=== PATIENT | male | born 1980 | race African-American/Black ===

== ENCOUNTER 2018-06-24 19:09 | Emergency (ER) | payer BC ==
[2018-06-24 19:45] VITALS: BP 134/81
--- NOTE | 2018-06-24 20:04 | UC ---
Skin Complaint HPI - HPI Summary HPI Summary: pt presents for evaluation of a possible tick bite to his back. he noticed it a month ago and pulled it out then. he states he is always in the pool. he states that there was a bump and it has subsequently gone down. he denies any fever, chills, arthralgas, or chest pain. - History of Current Complaint Chief Complaint: UCSkin Stated Complaint: BACK SKIN COMPLAINT TICK BITE Hx Obtained From: Patient, Family/[employer] Onset/Duration: Gradual Onset, Lasting Weeks - 4 Onset Severity: Mild Current Severity: Mild Pain Intensity: 0 - Allergy/Home Medications Allergies/Adverse Reactions: Allergies Allergy/AdvReac Type Severity Reaction Status Date / Time aspirin Allergy Unknown NOSE BLEEDS Verified 06/24/18 19:36 Review of Systems All Other Systems Reviewed And Are Negative: Yes Constitutional: Positive: Negative Skin: Positive: Rash Eyes: Positive: Negative ENT: Positive: Negative Respiratory: Positive: Negative Cardiovascular: Positive: Negative Gastrointestinal: Positive: Negative Genitourinary: Negative: Hematuria, Frequency Motor: Positive: Negative Neurovascular: Positive: Negative Musculoskeletal: Positive: Negative Neurological: Positive: Negative Psychological: Positive: Negative Is Patient Immunocompromised?: No PMH/Surg Hx/FS Hx/Imm Hx Previously Healthy: Yes - Surgical History Surgical History: None - Social History Alcohol Use: Daily Alcohol Amount: 1- 2 beer per day Substance Use Type: Marijuana Smoking Status (MU): Former Smoker Type: Cigars When Did the Patient Quit Smoking/Using Tobacco: 11/12 Physical Exam Triage Information Reviewed: Yes Appearance: Well-Appearing, No Pain Distress, Well-Nourished Vital Signs: Initial Vital Signs Temp 98 F 06/24/18 19:37 Pulse 53 06/24/18 19:37 Resp 18 06/24/18 19:37 BP 134/81 06/24/18 19:37 Pulse Ox 100 06/24/18 19:37 Vital Signs Reviewed: Yes Eye Exam: Normal ENT Exam: Normal Dental Exam: Normal Neck exam: Normal Respiratory Exam: Normal Cardiovascular Exam: Normal Abdomen Description: Positive: Nontender, Soft Musculoskeletal Exam: Normal Neurological Exam: Normal Psychological Exam: Normal Skin Exam: Normal Course/Dx - Course Course Of Treatment: no evidence of lyme disease. pt was concerned so lyme titers drawn. i informed pt we would call if positive. - Diagnoses Provider Diagnosis: Rash Discharge - Sign-Out/Discharge Documenting (check all that apply): Patient Departure All imaging exams completed and their final reports reviewed: No Studies - Discharge Plan Condition: Stable Disposition: HOME Patient Education Materials: Tick Bite (ED) Referrals: Maria L Ca MD [Primary Care Provider] - Additional Instructions: Please follow up with your doctor next week. return if worse or any new symptoms. If your blood test for lyme disease is positive, we will call you. please feel free to call us in 3 days to find out your results. apply lotion to your dry skin generously. - Billing Disposition and Condition Condition: STABLE Disposition: Home
== END 2018-06-24 20:26 | disposition home or self-care (01) ==
LOC: UCCORT 19:09
DX: R21 Rash and other nonspecific skin eruption (principal); Z87.891 Personal history of nicotine dependence
CPT/HCPCS: 86618; 99211; G0463

== ENCOUNTER 2018-10-21 08:05 | Emergency (ER) | payer BC ==
--- OUTSIDE RECORDS SUMMARY | 2018-10-21 08:29 | XMS REPORT | Continuity of Care Document ---
:1980 External Reference #:[id number] Author Name Ritchie Up MD Address [address] [facility] [place] [place] [address] Care Team Providers Name Role Phone Ritchie Up MD Care Team Information Nba Player Unavailable Ritchie Up MD Primary Care Physician Unavailable Payers Date Identification Numbers Payment Provider Subscriber Effective: 2011 Policy Number: [id number] Seymour Yehuda Deutsch Group Name: [facility] [address] [address] PayID: [id number] [place] [address] Advance Directives Description No Information Available Problems Date Description Provider Status Onset: 10/13/2018 Allergic contact dermatitis due to Ritchie Up MD Active metal Onset: 08/27/2011 Syncope and collapse Damien Campbell MD, PhD Resolved Resolved: 07/11/2015 Onset: 08/06/2011 Acute pain due to injury Delmy Maravilla FNP Resolved Resolved: 07/11/2015 Onset: 06/13/2011 Deficiency anemias Charley Bruce NP Resolved Resolved: 07/11/2015 Onset: 06/13/2011 Gastrointestinal hemorrhage Charley Bruce NP Resolved Resolved: 07/11/2015 Family History Date Family Member(s) Observation Comments Onset: (age 35 Father Myocardial Infarction Years) Father Stroke started age 58 x 2 Father Hypertension Father Type 2 Diabetes Mellitus Father Anxiety Father Born in [place] - survived ? PTSD civil war age 7-14 Father Prostate Cancer Mother Hypertension Mother Osteoarthritis Paternal Grandfather due to Unknown () - born Causes and lived in [place] Paternal Grandfather Unknown from [place] : (age Paternal Grandmother due to Stroke lived in [place] 80 Years) Paternal Grandmother Unknown from [place] Maternal Grandfather Hypertension : (age Maternal Grandfather due to Stroke 75 Years) Maternal Grandfather Alzheimer's Disease Maternal Grandfather Prostate Cancer Maternal Grandmother Unknown Onset: (age 68 Second Paternal Uncle Stroke Years) Paternal Uncles Enlarged Prostate Second Paternal Uncle Prostate Cancer Social History Type Date Description Comments Sex Unknown Diet Patient follows no dietary restrictions Occupation Currently Working [employer] ADL's/IADL's Independent with all ADL's ADL's/IADL's Independent with all IADL's Tobacco Use Start: Unknown Currently Smokes an Occasional Cigar ETOH Use Occasionally consumes alcohol Tobacco Use Start: Unknown End: Patient is a former smoker Unknown Smoking Status Reviewed: 10/13/18 Patient is a former smoker Allergies, Adverse Reactions, Alerts Date Description Reaction Status Severity Comments 08/27/2011 NKDA Active 10/13/2018 Nickel Active Medications Medication Date Status Form Strength Qnty SIG Indications Ordering Provider Betamethasone 10/13/ Active Cream 0.05% 15gm apply to Rosaline Up 2018 affected MD Ritchie area twice a day as needed Betamethasone 10/13/ Active Ointment 0.05% 15gm apply to Ramirez Upropionate 2018 affected MD Ritchie area bid prn No Active 12/31/ Hx Unknown Medications 2017 - 2018 Nystatin-Triamc 05/13/ Hx Cream 288519-8.1 30gm apply to L30.9 Khushbu, inolone 2017 - Unit/GM-% affected Jenniferl 12/31/ areas twice eigh, SENIOR MARKETING ANALYST 2018 daily until rash is gone No Active 05/23/ Hx Unknown Medications 2015 - 2015 Betamethasone 05/23/ Hx Cream 0.05% 15gm apply to Clune, Dipropionate 2016 - affected Jenniferl 12/31/ area twice a eigh, SENIOR MARKETING ANALYST 2018 day as needed No Active 07/11/ Hx Unknown Medications 2014 - 2014 Betamethasone /05/ Hx Cream 0.05% 1unit apply to Ca, Dipropionate 2014 - affected Maria L 07/11/ area twice a , 2014 day as needed Betamethasone 09/29/ Hx Cream 0.05% 1unit apply to Roby, Dipropionate 2014 - affected Maria L 05/23/ area twice a , M.D. 2015 day as needed Viagra 06/09/ Hx Tablets 50mg 6tabs one tablet Roby, 2013 - by mouth 1 Maria L 07/11/ hour prior , 2014 to sexual intercourse Viagra 06/09/ Hx Tablets 50mg 6tabs one tablet Khushbu, 2013 - by mouth 1 Jenniferl 05/23/ [facility] Cetirizine HCL 30/ Hx Tablets 10mg 90tab 1 by mouth Roby 2013 - s every day Maria L 07/11/ MD 2014 Cetirizine HCL 30/ Hx Tablets 10mg 90tab 1 by mouth Roby 2013 - s every day Maria L 05/23/ Pablo 2015 No Active 08/27/ Hx Campbell, Medications 2011 - Damien Zamora, 09/29/ , PhD 2014 Immunizations CPT Code Status Date Vaccine Lot # [id number] Given 01/14/2012 Tdap injection [id number] Given 05/14/2011 Tdap injection Vital Signs Date Vital Result Comment 10/13/2018 11:08am BP Systolic 112 mmHg BP Diastolic 76 mmHg Heart Rate 64 /min Respiratory Rate 18 /min Height 71.5 inches 5'11.50" Weight 213.00 lb BMI (Body Mass Index) 29.3 kg/m2 BSA (Body Surface Area) 2.18 m2 [place] body weight in kilograms 79 kg O2 % BldC Oximetry 98 % Ra 12/31/2017 9:58am BP Systolic Sitting Left Arm 126 mmHg BP Diastolic Sitting Left Arm 78 mmHg Heart Rate 68 /min Respiratory Rate 18 /min Height 71.5 inches 5'11.50" Weight 208.00 lb BMI (Body Mass Index) 28.6 kg/m2 BSA (Body Surface Area) 2.16 m2 [place] body weight in kilograms 79 kg 05/13/2017 9:23am BP Systolic Sitting Left Arm 124 mmHg BP Diastolic Sitting Left Arm 88 mmHg Heart Rate 60 /min Height 71.5 inches 5'11.50" Weight 209.00 lb BMI (Body Mass Index) 28.7 kg/m2 BSA (Body Surface Area) 2.16 m2 [place] body weight in kilograms 79 kg 05/23/2016 2:31pm BP Systolic Sitting Left Arm 138 mmHg BP Diastolic Sitting Left Arm 78 mmHg Heart Rate 62 /min Respiratory Rate 18 /min Height 71 inches 5'11" Weight 204.00 lb BMI (Body Mass Index) 28.4 kg/m2 BSA (Body Surface Area) 2.13 m2 [place]tec body weight in kilograms 78 kg 07/11/2015 3:00pm BP Systolic 114 mmHg BP Diastolic 76 mmHg Body Temperature 97.0 F Height 71 inches 5'11" Weight 220.00 lb BMI (Body Mass Index) 30.7 kg/m2 BSA (Body Surface Area) 2.20 m2 06/09/2014 9:20am BP Systolic 140 mmHg BP Diastolic 90 mmHg Heart Rate 72 /min Height 71 inches 5'11" Weight 210.00 lb 05/20/2014 3:08pm BP Systolic 114 mmHg BP Diastolic 76 mmHg Body Temperature 97.6 F Weight 206.00 lb 12/24/2013 2:09pm BP Systolic 124 mmHg BP Diastolic 76 mmHg Body Temperature 97.6 F Height 71 inches 5'11" Weight 202.00 lb O2 % BldC Oximetry 98 % 09/12/2011 11:32am BP Systolic 126 mmHg BP Diastolic 78 mmHg Body Temperature 97.4 F Height 71 inches 5'11" Weight 233.00 lb 08/30/2011 2:42pm BP Systolic Sitting Left Arm 150 mmHg BP Diastolic Sitting Left Arm 86 mmHg Heart Rate 60 /min Respiratory Rate 16 /min Height 71 inches 5'11" Weight 235.00 lb BMI (Body Mass Index) 32.8 kg/m2 08/27/2011 12:53pm BP Systolic Sitting Right Arm 146 mmHg BP Diastolic Sitting Right Arm 86 mmHg BP Systolic Sitting Left Arm 150 mmHg BP Diastolic Sitting Left Arm 86 mmHg Heart Rate 64 /min Regular Respiratory Rate 16 /min Height 71 inches 5'11" Weight 234.00 lb BMI (Body Mass Index) 32.6 kg/m2 08/06/2011 2:27pm BP Systolic 122 mmHg BP Diastolic 82 mmHg Height 71 inches 5'11" Weight 235.00 lb 06/13/2011 11:19am BP Systolic 120 mmHg BP Diastolic 72 mmHg Height 71 inches 5'11" Weight 227.00 lb 05/16/2011 10:41am BP Systolic 124 mmHg BP Diastolic 64 mmHg Height 72 inches 6'0" 05/14/2011 9:27am BP Systolic 124 mmHg BP Diastolic 72 mmHg Heart Rate 80 /min Respiratory Rate 18 /min Height 72 inches 6'0" Weight 226.00 lb Results Test Date Facility Test Result H/L Range Note Laboratory test [facility] Lyme Disease Negative Negative 1 finding 8 [phone] Serology HIV Screen [address] HIV Screen 4th Non Reactive Non Reactive 2, 3 Gen Reflex [address] [place] [address] wRfx [phone] Urine Dipstick RMP Inhouse Ua Protein trace Negative 8 Ua PH 6.5 6.5-7.5 Ua Specific [place] Level 1.020 1.010-1.030 Chlam/GC/Trichomonas 12/31/[address] Ur Trichomonas Negative Negative PCR, Ur [address] vaginalis,[place] [address] [phone] Ur Chlamydia trachomatis,PCR Negative Negative Ur Neisseria gonorrhoeae,PCR Negative Negative 4 Chlamydia/GC 05/13/[address] Chlamydia Negative Negative 5 Cora, Urine [address] Trachomatis,[place] [address] -PCR [phone] Neisseria Gonorrhoeae,Ur -PCR Negative Negative 6 CBS W/Automated Diff 05/23/[address] White Blood 6.2 K/uL N 3.4-10.[address] [place], [place] [address] [phone] Red Blood Count 5.68 M/uL N 4.20-5.80 Hemoglobin 13.4 gm/dL N 12.8-17.0 Hematocrit 41.1 % N 38.0-48.0 Mean Cell Volume 72.4 fl Low 80.0-96.0 Mean Corpuscular HGB 23.6 pg Low 27.0-33.0 Mean Corpuscular HGB Conc 32.6 g/dL N 31.7-36.0 Platelet Count 212 K/uL N 150-400 Red Cell Distri Width SD 39.1 fl N 36-51 Red Cell Distri Width %CV 15.1 % N 11.6-15.8 Mean Platelet Volume 10.6 fL N 6.6-10.6 Neut% 50.2 % N 33.0-73.0 Lymph % 31.7 % N 17.0-56.0 Edwards % 9.3 % N 0.0-10.0 Eo% 8.2 % High 0.0-5.0 Bas% 0.6 % N 0.1-1.0 Neut# 3.12 K/uL N 1.8-7.0 Lymph # 1.97 K/uL N 1.8-7.0 Edwards # 0.58 K/uL N 0.0-0.8 Eos # 0.51 K/uL High 0.0-0.5 Baso # 0.04 K/uL Low 0.1-0.2 Comprehensive Metabolic 05/23/[address] Glucose 84 mg/dL N 74 -106 Panel [address] [place] [address] [phone] BUN 21 mg/dL High 7-18 Creatinine 1.1 mg/dL N 0.6-1.3 Glom Filtration Rate, Estimate >60 mL/min N >60 If >60 mL/min N >60 8 BUN/Creat 19.0 ratio N Sodium 141 mmol/L N 136-145 Potassium 3.7 mmol/L N 3.5-5.1 Chloride 107 mmol/L N 98-107 Carbon Dioxide 27 mmol/L N 21-32 Anion Gap 7 mEq/L Low 8-16 Calcium 8.7 mg/dL N 8.5-10.1 Total Protein 7.4 g/dL N 6.4-8.2 Albumin 4.2 g/dL N 3.4-5.0 Globulin 3.2 g/dL N 1.9-4.3 Alb/Glob 1.3 ratio N Bilirubin,Total 0.6 mg/dL N 0.2-1.0 Sgot/Ast 39 U/L High 15-37 SGPT/Alt 40 U/L N 12-78 Alkaline Phosphatase 51 U/L N 45-117 LDL Cholesterol Profile 05/23/[address] Cholesterol 162 mg/dL N <200 9 [address] [place], [place] [address] [phone] Triglycerides 60 mg/dL N <150 10 HDL Cholesterol 62 mg/dL N >40 11 LDL-Cholesterol 88 mg/dL N < 100 12 Testosterone,Serum 05/23/[address] Testosterone,Serum 475 N [phone] ng/[place] [address] [phone] Comment (SEE NOTE) N 13 Laboratory test finding 12/24/2013 N2N/CCD Import Antibody Detection See Note 14 Chlamydia/GC Cora See Note 15 GC / Chlamydia 12/24/2013 N2N/CCD Import Chlamydia Negative GC Negative 16 Laboratory test finding 01/05/2013 N2N/CCD Import Lipase 96 U/L 28-380 CBC W/Automated Diff 01/05/2013 N2N/CCD Import Hematocrit 42.7 % 38.0- 48.0 Hemoglobin 14.1 gm/dL 12.8-17.0 Mean Cell Volume 71.3 fl Low 80.0-96.0 17 Mean Corpuscular HGB 23.5 pg Low 27.0-33.0 Mean Corpuscular HGB Conc 33.0 g/dL 31.7-36.0 Mean Platelet Volume 10.2 fL 6.6-10.6 Platelet Count 245 K/uL 150-400 Red Blood Count 5.99 M/uL High 4.20-5.80 Red Cell Distri Width %CV 14.8 % 11.6-15.8 Red Cell Distri Width SD 37.7 fl 36-51 White Blood Count 5.6 K/uL 3.4-10.5 Comprehensive Metabolic Panel 01/05/2013 N2N/CCD Import Alb/Glob 1.1 ratio Albumin 4.1 g/dL 3.5-5.0 Alkaline Phosphatase 62 U/L 50-136 Anion Gap 12 mEq/L 8-16 BUN 17 mg/dL 5-23 BUN/Creat 13.0 ratio Bilirubin,Total 0.5 mg/dL 0.2-1.2 Calcium 9.2 mg/dL 8.5-10.1 Carbon Dioxide 28 mEq/L 18-29 Chloride 106 mmol/L 98-107 Creatinine 1.3 mg/dL 0.5-1.4 Globulin 3.6 g/dL 1.9-4.3 Glom Filtration Rate, Estimate >60 mL/min >60 Glucose 119 mg/dL High 76-115 If >60 mL/min >60 18 Potassium 3.8 mmol/L 3.5-5.1 SGPT/Alt 32 U/L 30-65 Sgot/Ast 29 U/L 16-40 Sodium 142 mmol/L 136-145 Total Protein 7.7 g/dL 6.3-8.0 Differential-WBC Confirm 01/05/2013 N2N/CCD Import Band% 4 % 0-8 Eosinophil% 5 % 0-5 Lymph% 35 % 17-56 Monocyte% 18 % High 0-10 Neutrophils% 38 % 33-73 Platelet Estimate Normal RBC Morphology Normal Total Cells Counted 100 #CELLS Iron & Iron Binding 06/13/2011 N2N/CCD Import % Iron Saturation 34 % 15- 55 Capacity Iron Total 120 g/dL 45-182 Total Iron Binding Capacity 349 g/dL 250-450 Unsaturated Iron Binding 229 g/dL CBC With Manual Diff 06/13/2011 N2N/CCD Import Absolute Neutrophil Count 2.9 Anisocytosis Slight Eosinophil 5 % 0-6 Hematocrit 42 % 42-52 Hemoglobin 13.6 g/dL Low 14.0-18.0 Lymphocyte 23 % Low 25-47 Mean Corpuscular HGB Cone 33 g/dL 32-36 Mean Corpuscular Hemoglob 24 pg Low 27-31 Mean Corpuscular Volume 75 um3 Low 80-94 Mean Platelet Volume 8.8 um3 7.4-10.4 Microcytosis Slight Monocyte 13 % 0-13 Ovalocytes Few Platelet Count 210 CUMM 150-450 Polysegmented Neutrophil 59 % 38-83 Red Cell Count 5.63 CUMM 4.6-6.2 Redcell Distribution WDTH 15 % 10.5-15 White Blood Count 5.0 CUMM 4.8-10.8 Laboratory test finding 06/13/2011 N2N/CCD Import Ferritin 162 ng/mL 24- 336 RBC Morphology 05/14/2011 N2N/CCD Import Anisocytosis Slight Ovalocytes Few Lipid Profile 05/14/2011 N2N/CCD Import Cholesterol 150 mg/dL Less Than 19 (Trig/Chol/HDL) 200 Cholesterol/HDL Ratio 3.00 AVERAGE 1-4.97 High Density Lipoprotein 50 mg/dL 40-60 20 Low Density Lipoprotein 88 mg/dL Less Than 100 21 Triglyceride 59 mg/dL 40-200 Comp Metabolic Panel 05/14/2011 N2N/CCD Import Albumin 4.2 GM/DL 3.6- 5.4 Albumin/Globulin Ratio 1.4 1-3 Alkaline Phosphatase 37 U/L Low 39-117 Alt (SGPT) 29 U/L 17-63 Anion Gap 5.0 mmol/L 2-11 22 Ast (Sgot) 29 U/L 12-42 BUN 15 mg/dL 6-24 BUN/Creatinine Ratio 13.6 8-20 Bilirubin Total 0.7 mg/dL 0.4-1.5 23 Calcium 9.3 mg/dL 8.1-9.9 Chloride 105 mmol/L 101-111 Co2 (Carbon Dioxide) 30.0 mmol/L 22-32 Creatinine 1.1 mg/dL 0.50-1.40 Globulin 2.9 GM/DL 2-4 Glucose 98 mg/dL 70-100 One Over Creatinine 0.90 Potassium 4.2 mmol/L 3.5-5.0 Sodium 140 mmol/L 135-145 Total Protein 7.1 GM/DL 6.2-8.1 eGFR 101.1 > 60 24 eGFR Non- 78.6 > 60 CBC Auto Diff 05/14/2011 N2N/CCD Import Abs Basophils 0 0-0.2 25 Abs Eosinophils 0.3 0-0.6 Abs Lymphs 1.6 1.0-4.8 Abs Mononuclear 0.5 0-0.8 Absolute Neutrophil Count 2.3 1.5-7.7 Basophil % 0.9 % 0-2 Eosinophil % 6.4 % High 0-6 Gran % 48.7 % 38-83 Hematocrit 41 % Low 42-52 Hemoglobin 13.4 g/dL Low 14.0-18.0 Lymph % 33.8 % 25-47 Mean Corpuscular HGB Cone 33 g/dL 32-36 Mean Corpuscular Hemoglob 24 pg Low 27-31 Mean Corpuscular Volume 74 um3 Low 80-94 Mean Platelet Volume 9.1 um3 7.4-10.4 Mononuclear % 10.2 % High 1-9 Platelet Count 198 CUMM 150-450 Red Cell Count 5.58 CUMM 4.6-6.2 Redcell Distribution WDTH 15 % 10.5-15 White Blood Count 4.7 CUMM Low 4.8-10.8 Laboratory test 05/14/2011 N2N/CCD Import Hemoglobin A1c 5.7 % Less Than 6.0 26 finding TSH 1.77 MIU/ML 0.34-5.60 1 No evidence of antibodies to B. burgdorferi detected. False negative results may occur in recently infected patients (<=2 weeks) due to low or undetectable antibody levels to B. burgdorferi. If recent exposure is suspected, a second sample should be collected and tested in 2-4 weeks. Test Performed by: [facility] [address] [place] [address] 2 Z72.51 3 Performed at: RN - [facility] [address] [id number] Mold Maker Helper: Anna Sy MD, Phone: [phone] 4 A negative result for either C. trachomatis and/or N. gonorrhoeae does not preclued an infection because results are dependent on adequate specimen collection, absence of inhibitors, and sufficient DNA to be detected. 5 Z00.00 6 A negative result for either C. trachomatis and/or N. gonorrhoeae does not preclued an infection because results are dependent on adequate specimen collection, absence of inhibitors, and sufficient DNA to be detected. 7 N52.9 Z00.00 8 Note: Persistent reduction for 3 months or more in an eGFR <60 mL/min/1.73 m2 defines CKD. Patients with eGFR values >/=60 mL/min/1.73 m2 may also have CKD if evidence of persistent proteinuria is present. The original MDRD equation for estimated GFR is not valid for patients less than 18 years of age. Additional information may be found at www.kdoqi.org. 9 Reference Guidelines*: Desirable: ........... < 200 mg/dL Borderline High: ..... 200-239 mg/dL High: ................ >=240 mg/dL * The National Cholesterol Education Program (NCEP) 10 Reference Guidelines*: Normal: ............. < 150 mg/dL Borderline High: .... 150-199 mg/dL High: ............... 200-499 mg/dL Very High: .......... > 500 mg/dL * Source: National Cholesterol Education Program (NCEP) 11 Reference Guidelines*: Low HDL: ..... < 40 mg/dL Normal: ..... 40-60 mg/dL Desirable: ... > 60 mg/dL *The National Cholesterol Education Program(NCEP) 12 Reference Guidelines*: Optimal:........... <100 mg/dL Near Optimal....... 100-129 mg/dL Borderline High.... 130-159 mg/dL High............... 160-189 mg/dL Very High.......... >=190 mg/dL * Source: National Cholesterol Education Program (NCEP) 13 Adult male reference interval is based on a population of lean males up to 40 years old. 14 No reportable results 15 DOCTOR'S ORDERS 16 [facility] [address] [facility], [address] [place] [address] GC / CHLAMYDIA REPORT Name: Yehuda Deutsch : 1980 (Age: 33) Sex: M Location: [facility] Med. Rec. # Date Collected: 12/24/2013 Billing #: [id number] Date Received: 12/24/2013 Physician(s): OMEGA MILLER Source of Specimen: Urine, APTIMA Results: Neisseria gonorrhoeae NEGATIVE Chlamydia trachomatis NEGATIVE Comment: This analysis was performed using second generation nucleic acid amplification testing (NAAT). Reported: 12/27/2013 Electronic Signature ia [facility] ICD-9 Codes: V69.2 17 Result confirmed by repeat analysis. 18 Note: Persistent reduction for 3 months or more in an eGFR <60 mL/min/1.73 m2 defines CKD. Patients with eGFR values >/=60 mL/min/1.73 m2 may also have CKD if evidence of persistent proteinuria is present. The original MDRD equation for estimated GFR is not valid for patients less than 18 years of age. Additional information may be found at www.kdoqi.org. 19 CHOLESTEROL INTERPRETATION: Desirable: Less than 200 MG/DL Borderline-High Risk: 200-239 MG/DL High-Risk: 240 MG/DL and over 20 HDL INTERPRETATION: Undesirable: High Risk: Less than 40 MG/DL Desirable: Low Risk: Greater than 60 MG/DL 21 LDL INTERPRETATION: Low Risk Optimal Level: LDL Less than 100 MG/DL Near or Above Optimal: LDL 100-129 MG/DL Borderline High Risk: LDL 130-159 MG/DL High Risk : LDL 160-189 MG/DL Very High Risk: LDL Greater than 189 MG/DL 22 Anion gap measurement may be of limited value in the presence of any alkalosis, especially in a combined acid base disorder. . 23 A metabolite of Naproxen, O-desmethylnaproxen, has been shown to interfere with the Jendrassik-Independence method for measuring total bilirubin. Samples from patients who have taken Naproxen have shown spurious elevation in total bilirubin levels. 24 Because ethnic data is not always readily available, this report includes an eGFR for both -Americans and non- Americans. The National Kidney Disease Education Program (NKDEP) does not endorse the use of the MDRD equation for patients that are not between the ages of 18 and 70, are , have extremes of body size, muscle mass, or nutritional status, or are non- or non-. According to the National Kidney Foundation, irrespective of diagnosis, the stage of the disease is based on the level of kidney function: Stage Description GFR(mL/min/1.73 m(2)) 1 Kidney damage with normal or decreased GFR 90 2 Kidney damage with mild decrease in GFR 60- 89 3 Moderate decrease in GFR 30-59 4 Severe decrease in GFR 15-29 5 Kidney failure <15 (or dialysis) 25 1+ Microcytosis 26 THERAPEUTIC TARGET FOR THE TREATMENT OF DIABETES MELLITUS PATIENTS IS <7% HBA1C, AND IN SELECTIVE PATIENTS <6.0%. PLEASE REFER TO [employer] DIABETIC CARE GUIDELINES FOR FURTHER INFORMATION. Procedures Date Code Description Status 08/29/2011 03922 ECHO Transthoracic Inc Performance Continuous Completed Electrocardio 08/27/2011 19937 EKG-Tracing And Report Completed Encounters Type Date Location Provider Dx Diagnosis Office Visit 12/31/2017 Family Medicine Khushbu, Z72.51 High risk 9:45a West EUGENE Duff, heterosexual SENIOR MARKETING ANALYST behavior Office Visit 05/13/2017 Family Medicine Khushbu, Z00.00 Encntr for general 9:15a West EUGENE Duff, adult medical exam SENIOR MARKETING ANALYST w/o abnormal findings L30.9 Dermatitis, unspecified Office Visit 05/23/2016 2:30p Family Ríos, Z00.00 Encntr for Medicine Domo Duff [facility] general adult RD medical exam w/o abnormal findings N52.9 Male erectile dysfunction, unspecified Z13.6 Encounter for screening for cardiovascular disorders Office Visit 07/11/2015 Family Medicine Clune, Z71.1 Person w feared 2:15p [address] RD Omega, SENIOR MARKETING ANALYST hlth complaint in whom no diagnosis is made Office Visit 08/30/2011 Cardiology Damien Campbell MD, 401.1 Hypertension 2:20p Office PhD Benign 786.59 Pain Chest Other Office Visit 08/27/2011 1:00p Cardiology Office Damien Campbell 785.2 Murmur Cardiac MD Noah, PhD Undiagnosed 780.2 Syncope & Collapse 786.59 Pain Chest Other Plan of Treatment 10/13/2018 - Ritchie Up MDZ13.6 Encounter for screening for cardiovascular disordersNew Labs:CBC W/Automated Diff, Ordered: 10/13/18Comprehensive Metabolic Panel, Ordered: 10/13/18LDL Cholesterol Profile, Ordered: Glycohemoglobin A1c, Ordered: 10/13/18T7/TSH, Ordered: 10/13/18HIV Screen 4TH Gen Reflex, Ordered: 10/13/18Z00.01 Encounter for general adult medical examination with abnormal iuwavdrfU32.0 Allergic contact dermatitis due to qtqiflZ47.1 Tinea unguiumAllNew Medication:Betamethasone Dipropionate 0.05 % - apply to affected area twice a day as neededBetamethasone Dipropionate 0.05 % - apply to affected area bid prn
[2018-10-21 09:14] VITALS: BP 134/80
--- NOTE | 2018-10-21 10:46 | UC ---
Eye Complaint HPI - HPI Summary HPI Summary: Pt presents with c/o sudden onset of left eye dischrge, feeling of FB, but no know FB, eye redness, and tenderness X 1 day. - History of Current Complaint Chief Complaint: UCEye Stated Complaint: LT EYE CONCERN Time Seen by Provider: 10/21/18 09:53 Hx Obtained From: Patient Onset/Duration: Sudden Onset, Still Present Timing: Constant Severity Initially: Mild Severity Currently: Mild Pain Intensity: 0 Pain Scale Used: 0-10 Numeric Character: Foreign Body Sensation Aggravating Factor(s): Blinking Alleviating Factor(s): Nothing Associated Signs And Symptoms: Positive: Drainage (Purulent) - Risk Factors Penetrating Injury Risk Factor: Negative Globe Rupture Risk Factors: Negative Optic Artery Occlusion Risk Factors: Negative - Allergies/Home Medications Allergies/Adverse Reactions: Allergies Allergy/AdvReac Type Severity Reaction Status Date / Time aspirin Allergy Unknown NOSE BLEEDS Verified 06/24/18 19:36 cats, grass Allergy Eyes Uncoded 10/21/18 09:06 Itchy/Swollen/Red/Watery Home Medications: Home Medications Lamisil Oral 1 tab PO DAILY 10/21/18 [History Confirmed 10/21/18] PMH/Surg Hx/FS Hx/Imm Hx Previously Healthy: Yes - Surgical History Surgical History: None - Family History Known Family History: Positive: Cardiac Disease - Social History Occupation: Employed Full-time Lives: With Family Alcohol Use: Daily Alcohol Amount: 1- 2 beer per day Substance Use Type: Marijuana Substance Use Comment - Amount & Last Used: last used mid-September 2018 Smoking Status (MU): Former Smoker Type: Cigars Have You Smoked in the Last Year: Yes When Did the Patient Quit Smoking/Using Tobacco: 11/12 Review of Systems All Other Systems Reviewed And Are Negative: Yes Constitutional: Positive: Negative Skin: Positive: Negative Eyes: Positive: Blurred Vision, Drainage, Eye Redness ENT: Positive: Negative Respiratory: Positive: Negative Cardiovascular: Positive: Negative Gastrointestinal: Positive: Negative Genitourinary: Positive: Negative Motor: Positive: Negative Neurovascular: Positive: Negative Musculoskeletal: Positive: Negative Neurological: Positive: Negative Psychological: Positive: Negative Is Patient Immunocompromised?: No Physical Exam Triage Information Reviewed: Yes Appearance: Well-Appearing Vital Signs: Initial Vital Signs Temp 97.5 F 10/21/18 09:08 Pulse 54 10/21/18 09:08 Resp 18 10/21/18 09:08 BP 134/80 10/21/18 09:08 Pulse Ox 100 10/21/18 09:08 Vital Signs Reviewed: Yes Eyes: Positive: Conjunctiva Inflamed, Discharge - yellow left eye ENT Exam: Normal Dental Exam: Normal Respiratory: Positive: No respiratory distress Musculoskeletal Exam: Normal Neurological Exam: Normal Psychological Exam: Normal Skin Exam: Normal Eye Complaint Course/Dx - Course Course Of Treatment: NO FB, appreciated on PE, pt was referred to eye care provider for F/U is symptoms do not improve or worsen. - Differential Dx/Diagnosis Differential Diagnosis/HQI/PQRI: Conjunctivitis, Foreign Body Provider Diagnosis: Conjunctivitis, left eye Discharge - Sign-Out/Discharge Documenting (check all that apply): Patient Departure All imaging exams completed and their final reports reviewed: No Studies - Discharge Plan Condition: Stable Disposition: HOME Prescriptions: Polymyx/Trimethoprim OPTH* [Polytrim OPHTH*] 2 drop LEFT EYE Q4H 7 Days #1 btl Patient Education Materials: Conjunctivitis (ED) Referrals: [facility] [Outside] - If Needed Tr Abdullahi OD [Doctor of Osteopathy] - If Needed No Primary Care Phys,NOPCP [Primary Care Provider] - - Billing Disposition and Condition Condition: STABLE Disposition: Home
== END 2018-10-21 10:15 | disposition home or self-care (01) ==
LOC: UCCORT 08:05
DX: H10.9 Unspecified conjunctivitis (principal); Z88.8 Allergy status to other drugs, medicaments and biological substances; Z91.09 Other allergy status, other than to drugs and biological substances; Z87.891 Personal history of nicotine dependence
CPT/HCPCS: 99212; G0463